=== PATIENT | female | born 1970 | race African-American/Black ===

== ENCOUNTER 2023-06-30 07:55 | Emergency (ER) | payer MEDICAID, OTHER ==
[~2023-06-30] VITALS: Ht 157.5 cm; Wt 80.7 kg
[~2023-06-30 07:55] MED LIST: SULF1TAB48 MT
[2023-06-30 08:04] VITALS: BP 113/45; TEMP 98.2; O2SAT 100
[2023-06-30 08:05] VITALS: PULSE 58; RESP 18
== END 2023-06-30 08:55 | disposition home or self-care (01) ==
LOC: ER 07:56
DX: L02.415 Cutaneous abscess of right lower limb (principal)
CPT/HCPCS: 99281

== ENCOUNTER 2023-08-03 00:38 | Emergency (ER) | payer MEDICAID ==
[~2023-08-03] VITALS: Ht 170.2 cm; Wt 90.0 kg
[2023-08-03] MEDS ORDERED: KETOROLAC 60MG/2ML VIAL IM ONE (00:45)
[2023-08-03 00:49] VITALS: O2SAT 100
[2023-08-03] MEDS ORDERED: KETOROLAC 60MG/2ML VIAL IM NR (04:00)
[2023-08-03 06:02] VITALS: BP 138/72; PULSE 77; RESP 18; TEMP 98.6
== END 2023-08-03 06:10 | disposition home or self-care (01) ==
LOC: ER 00:38
DX: R51.9 Headache, unspecified (principal)
CPT/HCPCS: 99285; 70450; 96372; J1885

== ENCOUNTER 2023-08-05 06:00 | Emergency (ER) | payer MEDICAID ==
[~2023-08-05] VITALS: Ht 160 cm; Wt 73.8 kg
[2023-08-05] MEDS ORDERED: ACETAMINOPHEN 325MG TABLET PO STA (06:28)
[2023-08-05 06:35] VITALS: O2SAT 100
[2023-08-05] MEDS ORDERED: IMIT25 MT (07:07)
[2023-08-05 07:35] VITALS: BP 138/47; PULSE 106; RESP 18; TEMP 98.7
== END 2023-08-05 07:35 | disposition home or self-care (01) ==
LOC: ER 06:00
DX: R51.9 Headache, unspecified (principal)
CPT/HCPCS: 99284